=== PATIENT | male | born 1940 | race Caucasian/White ===

== ENCOUNTER 2018-04-01 11:39 | Day surgery (SDC) | payer OTHER ==
[2018-04-01] MEDS ORDERED: TETRACAINE HCL 0.5% 2ML OPTH ONE (12:24)
[2018-04-01] MEDS ORDERED: CYCLOPENTOLATE 1% OPTH 2 ML ONE (12:24)
[2018-04-01] MEDS ORDERED: PHENYLEPHRINE 10% OPTH 5ML ONE (12:24)
[2018-04-01] MEDS ORDERED: NA CHLORIDE 0.9% 500 ML ONE (12:24)
[2018-04-01 12:26] LABS: Protime INR 1.16
[2018-04-01] MEDS ORDERED: CYCLOPENTOLATE 1% OPTH 2 ML OPTH ONE ×2 (12:29→12:42)
[2018-04-01] MEDS ORDERED: PHENYLEPHRINE 10% OPTH 5ML OPTH ONE ×2 (12:29→12:42)
[2018-04-01] MEDS ORDERED: DUOVISC 1 KIT OPTH ONE (12:45)
[2018-04-01] MEDS ORDERED: NS 0.9% VIAL 10 ML ONE (12:45)
[2018-04-01] MEDS ORDERED: MOXIFLOXACIN HCL 10 DROPS/ML **OR USE OPTH ONE (12:45)
[2018-04-01] MEDS ORDERED: BALANCED SALT IRRIG PLAIN 500 ML BTL IRR ONE (12:45)
[2018-04-01] MEDS ORDERED: EPINEPHRINE/PF 1 MG/ML AMP ONE (12:45)
[2018-04-01] MEDS: BUPIVACAINE 0.25% PF 10 ML VIAL ONE ×2 (13:18→13:28)
[2018-04-01] MEDS: LIDOCAINE 2% MPF 5 ML VIAL ONE ×2 (13:18→13:28)
[2018-04-01] MEDS ORDERED: LIDOCAINE 1% MPF 2 ML AMPULE ONE (13:28)
[2018-04-01] MEDS ORDERED: PROPOFOL 200 MG/20 ML VIAL IV ONE ×2 (13:28→13:36)
[2018-04-01] MEDS ORDERED: LIDOCAINE 1% MPF 5 ML VIAL ONE (13:36)
--- NOTE | 2018-04-01 14:11 | P.BOP ---
Preoperative diagnosis: Nuclear sclerotic cataract OS Postoperative diagnosis: Same Primary procedure: Phacoemulsification with IOL OS Estimated blood loss: None Anesthesia: Local (Subtenon's infusion with anesthesia for cataract surgery) Complications: None Implants: SA60WF +20.5 Transferred to: Other (Day surgery) Condition: Good
[2018-04-01 15:05] VITALS: BP 140/67; TEMP 97.8; O2SAT 97
--- NOTE | 2018-04-02 00:43 | OP ---
Date of Procedure: 04/01/2018 Surgeon: Leena Duncan MD Anesthesiologist: Dakota Crenshaw CRNA and Mike Choe MD. Preoperative Diagnosis: Nuclear sclerotic cataract, left eye. Operation Performed: Phacoemulsification with intraocular lens implant, left eye. Anesthesia: Per cataract surgery. Complications: None. Description Of Procedure: In day surgery, the patient was prepped with Betadine and draped. A conju nctival incision was made in the inferior nasal quadrant with Alanis scissors. A sub-Tenon block c onsisting of a 1:1 mixture of 2% Xylocaine and 0.25% bupivacaine was placed through the conjunctival incision with a blunt cannula. A Honan balloon was placed over the eye and the patient was transferr ed to the operating room. In the operating room the patient was prepped and draped in the usual sterile fashion for ophthalmic surgery. A lid speculum was placed in the left eye. Two paracentesis sites were made superiorly and inferiorly in the limbal cornea. Viscoat was placed in the anterior chamber and a crescent blade wa s used to make a corneal groove and tunnel, and a keratome was used to enter the anterior chamber. P rovisc was placed in the anterior chamber and a 360 degree capsulotomy was performed with a cystitome . The lens was hydrodissected with BSS and rotated freely. The lens was removed with a stop and cho p technique. 21.95 Phaco CDE was used to remove the lens. Residual cortex was removed with the irri gation and aspiration. Provisc was placed in the capsular bag. A SA60WF +20.5 lens was placed in th e capsular bag without complications. Irrigation and aspiration were used to remove residual viscoel astic. The paracentesis sites were hydrated with BSS. The wound and paracentesis sites were inspect ed and found to be watertight. Vigamox 0.07 cc was placed intracamerally at the end of the procedure . The eye was irrigated with balanced salt solution. The eye was patched with a soft cotton patch a nd Locke metal shield. The patient was returned to day surgery in good condition. Comments: Extra Viscoat was used. Trace residual PSC remained at the end of surgery. Discharge Instructions: Mr. Tirado is discharged to home in good condition and is to follow up with D r. Leidlein in the morning. SHEREE/JOSE Voice ID: [id number] Report ID: [id number]
== END 2018-04-01 14:40 | disposition home or self-care (01) ==
LOC: OR 11:39
PROVIDERS: ATTEND Ophthalmology Retina Specialist
PROC: 08RK3JZ Replacement of Left Lens with Synthetic Substitute, Percutaneous Approach (ICD-10-PCS; principal; 2018-04-01 11:30)
DX: H25.12 Age-related nuclear cataract, left eye (principal); I10 Essential (primary) hypertension; E78.00 Pure hypercholesterolemia, unspecified; I48.91 Unspecified atrial fibrillation; Z79.01 Long term (current) use of anticoagulants; Z72.0 Tobacco use
CPT/HCPCS: 36415; 66984; 85610; J0171; J2001; J2704

== ENCOUNTER 2018-05-13 07:12 | Day surgery (SDC) | payer OTHER ==
[2018-05-13] MEDS ORDERED: NS 0.9% VIAL 10 ML ONE (08:25)
[2018-05-13] MEDS: CYCLOPENTOLATE 1% OPTH 2 ML ONE ×3 (08:26→08:43)
[2018-05-13] MEDS: PHENYLEPHRINE 10% OPTH 5ML ONE ×3 (08:26→08:43)
[2018-05-13] MEDS ORDERED: NA CHLORIDE 0.9% 500 ML ONE (08:29)
[2018-05-13] MEDS: DUOVISC 1 KIT OPTH ONE ×2 (08:29→09:02)
[2018-05-13] MEDS ORDERED: LIDOCAINE 2% MPF 5 ML VIAL ONE ×2 (08:29→08:54)
[2018-05-13] MEDS ORDERED: TETRACAINE HCL 0.5% 2ML OPTH ONE (08:29)
[2018-05-13] MEDS ORDERED: PROPOFOL 200 MG/20 ML VIAL IV ONE (08:54)
[2018-05-13] MEDS: MOXIFLOXACIN HCL 10 DROPS/ML **OR USE OPTH ONE ×3 (09:01→09:48)
[2018-05-13] MEDS: BALANCED SALT IRRIG PLAIN 500 ML BTL IRR ONE ×2 (09:01→09:29)
[2018-05-13] MEDS: EPINEPHRINE/PF 1 MG/ML AMP ONE ×2 (09:01→09:29)
[2018-05-13] MEDS: BUPIVACAINE 0.25% PF 10 ML VIAL ONE ×2 (09:17→09:35)
--- NOTE | 2018-05-13 09:55 | P.BOP ---
Preoperative diagnosis: Nuclear sclerotic cataract OD Postoperative diagnosis: Same Primary procedure: Phacoemulsification with IOL OD Estimated blood loss: None Anesthesia: Local (Subtenon's infusion with anesthesia for cataract surgery) Complications: None Implants: SA60WF +20.0 Transferred to: Other (Day surgery) Condition: Good
[2018-05-13 10:12] VITALS: BP 111/62; TEMP 97.4; O2SAT 100
--- NOTE | 2018-05-13 20:18 | OP ---
Date of Procedure: 05/13/2018 Surgeon: Leena Duncan MD Anesthesiologist: Meredith Lyle CRNA and Tony Patterson M.D. Preoperative Diagnosis: Nuclear sclerotic cataract, OD (right eye). Operation Performed: Phacoemulsification with intraocular lens implant, OD (right eye). Anesthesia: Per cataract surgery. Complications: None Description Of Procedure: In day surgery, the patient was prepped with Betadine and draped. A conju nctival incision was made in the inferior nasal quadrant with Alanis scissors. A sub-Tenon block c onsisting of a 1:1 mixture of 2% Xylocaine and 0.25% bupivacaine was placed through the conjunctival incision with a blunt cannula. A Honan balloon was placed over the eye and the patient was transferr ed to the operating room. In the operating room the patient was prepped and draped in the usual sterile fashion for ophthalmic surgery. A lid speculum was placed in the right eye. Two paracentesis sites were made superiorly an d inferiorly in the limbal cornea. Viscoat was placed in the anterior chamber and a crescent blade w as used to make a corneal groove and tunnel, and a keratome was used to enter the anterior chamber. Provisc was placed in the anterior chamber and a 360 degree capsulotomy was performed with a cystitom e. The lens was hydrodissected with BSS and rotated freely. The lens was removed with a stop and ch op technique. 13.89 phaco CDE was used to remove the lens. Residual cortex was removed with the irr igation and aspiration. Provisc was placed in the capsular bag. A SA60WF +20.0 lens was placed in t he capsular bag without complications. Irrigation and aspiration was used to remove residual viscoel astic. The paracentesis sites were hydrated with BSS. The wound and paracentesis sites were inspect ed and found to be watertight. Vigamox 0.07 cc was placed intracamerally at the end of the procedure . The eye was irrigated with balanced salt solution. The eye was patched with a soft cotton patch a nd Locke metal shield. The patient was returned to day surgery in good condition. Comments: The patient coughed during surgery but there is no apparent complication. Extra Viscoat wa s used. Discharge Instructions: Mr. Tirado was discharged to home in good condition and is to follow up with Dr. Duncan in the morning. SHEREE/JOSE Voice ID: [id number] Report ID: [id number]
== END 2018-05-13 10:26 | disposition home or self-care (01) ==
LOC: OR 07:12
PROVIDERS: ATTEND Ophthalmology Retina Specialist
PROC: 08RJ3JZ Replacement of Right Lens with Synthetic Substitute, Percutaneous Approach (ICD-10-PCS; principal; 2018-05-13 09:50)
DX: H25.11 Age-related nuclear cataract, right eye (principal); I10 Essential (primary) hypertension; E78.00 Pure hypercholesterolemia, unspecified; I48.91 Unspecified atrial fibrillation; Z72.0 Tobacco use
CPT/HCPCS: 66984; J2704; J0171

== ENCOUNTER 2021-07-08 07:35 | Emergency (ER) | payer OTHER ==
--- OUTSIDE RECORDS SUMMARY | 2021-07-08 07:37 | XMS REPORT | Continuity of Care Document ---
:1940 Author Organization [facility] t Address [address] [place] [address] Care Team Providers Name Role Phone None Primary Care Physician Unavailable RORYAPUNT Attending Clinician Unavailable FAITH TOM Attending Clinician Unavailable 2, Lab Attending Clinician Unavailable Attar MD Attending Clinician ATTAR Attending Clinician Unavailable Doctor Unassigned, Name Attending Clinician Unavailable Payers Payer Name Policy Type Policy Number Effective Date Expiration Date S ourgonzalo MEDICARE PART A [id number] 2007 AND B 00:00:00 MEDICARE PART A [id number] 2007 \T\ B 00:00:00 [employer] INDEMNITY [id number] 00:00:00 Problems This patient has no known problems. Allergies, Adverse Reactions, Alerts Allergy Allergy Status Severity Reaction(s) Onset Inactive Treating Comm ents Source Name Type Date Date Clinician NO KNOWN Drug Active [facility] Class [facility] Social History Social Habit Start Date Stop Date Quantity Comments Source Exposure to Not sure [facility] SARS-CoV-2 (event) [facility] Sex Assigned At [birth year] [facility] 00:00:00 00:00:00 Smoking Status Start Date Stop Date Source Tobacco smoking consumption unknown [facility] Medications Ordered Filled Start Stop Current Ordering Indication Dosage Frequency Signature Comments Components Source Medication Medication Date Date Medication? Clinician (SIG) Name Name metoprolol 2020-02 Yes 100mg QD Take 100 UT tartrate 1-26 mg [facility] (Lopressor) 00:00: mouth 1 100 MG 00 (one) time tablet each day. amLODIPine 2020-02 Yes 5mg QD Take 5 mg UT (Norvasc) 5 1-26 by mouth 1 He alth MG tablet 00:00: (one) time 00 each day. losartan 2020-02 Yes 100mg QD Take 100 UT (Cozaar) 1-26 mg [facility] 100 MG 00:00: mouth 1 tablet 00 (one) time each day. Xarelto 20 2020-02 Yes 20mg QD Take 20 mg U T MG tablet -26 by mouth 1 Heal th 00:00: (one) time 00 each day. with food simvastatin 2020-02 Yes 40mg QD Take 40 mg UT (Zocor) 40 - by mouth 1 Hea lth MG tablet 00:00: (one) time 00 each day. Procedures Procedure Date / Time Performing Clinician Source Performed AGREEMENTS AUTHORIZATIONS 2019-08-28 05:01:00 Doctor Unassigned, [facility] AND IRREVOCABLE [facility] ASSIGNMENTS (FORM 2000) Encounters Start End Encounter Admission Attending Care Care Encounter Source Date/Time Date/Time Type Type Clinicians Facility Department ID 2021-04-22 [id number] 2021-04-22 Office Formerly [facility] 4 [id number] MD 14:45:00 15:11:20 Visit James [id number] He alth [id number] 2020-03-29 2020-03-29 [facility] [id number]-20 Univers 13:30:00 13:30:00 CARMELA [id number] [facility] 2020-03-29 2020-03-29 [facility] [id number] Univers 13:30:00 13:30:00 CARMELA [facility] 2019-08-28 2019-08-28 Head Machine Feeder 2, [facility] [id number] 11:15:07 11:30:07 Visit Edis [id number] Prema [id number] Professangel [id number] [address] 2019-08-28 2019-08-28 Head Machine Feeder 2, [facility] [id number] Univers 11:15:07 11:30:07 Visit AttarJennifer [id number] [facility] [id number] [id number] Ne dical [address] 2019-08-28 2019-08-28 Outpatient R ATTJOVITA, [facility] [id number] Univers 11:00:00 11:00:00 JENNIFER sherman f [facility] 2019-08-28 2019-08-28 Orders Doctor HORTENCIA [id number] 00:00:00 00:00:00 Only Unassigned, MARY [id number] [place] [facility] [id number] 2019-08-28 2019-08-28 Orders Doctor HORTENCIA [id number] [facility] 00:00:00 00:00:00 Only Unassigned, MARY [id number] ity of [place] [facility] [id number] Abdulaziz as [phone] [place] [address] Branch Results This patient has no known results.
[2021-07-08] MEDS ORDERED: ONDANSETRON 4 MG/2 ML VIAL ONE (08:13)
[2021-07-08] MEDS ORDERED: FENTANYL CITR 100 MCG/2 ML ONE (08:13)
[2021-07-08] MEDS ORDERED: TETANUS & DIPHTHERIA TOX,ADULT 0.5 ML VIAL ONE (08:14)
[2021-07-08] MEDS ORDERED: NA CHLORIDE 0.9% 1,000 ML ONE (08:14)
[2021-07-08 08:44] LABS: Absolute Lymphocytes (CBC) 0.6 K/uL (0.7-4.9); Lymphocytes % 4.6 % (15.3-44.8); MPV 8.2 fL (7.6-11.3); RBC Red Blood Cell Count 3.88 M/uL (4.33-5.43)
[2021-07-08] MEDS ORDERED: METOPROLOL TARTRATE 5 MG/5 ML INJ IV ONE ×2 (08:45→09:43)
--- NOTE | 2021-07-08 09:38 | RAD REPORT ---
EXAM DESCRIPTION: CT - Head C Spine Cap Wo Con - 07/08/2021 8:58 am CLINICAL HISTORY: FALL, head, neck, chest and abdomen pain COMPARISON: No comparisons TECHNIQUE: Axial [address] head images were obtained. Axial [address] cervical spine images were obtain ed with sagittal and coronal reconstruction images reviewed. Axial 5 mm images of the chest, abdomen and pelvis were obtained. All CT scans are performed using dose optimization technique as appropriate and may include automated exposure control or mA/KV adjustment according to patient size. FINDINGS: No intracranial hemorrhage, mass or edema. No midline shift or abnormal fluid collection. Moderate atrophy and chronic ischemic changes are present with ventricles in proportion to the volume loss. Dense arterial tree calcifications are present. Mastoid air cells are clear. Chronic right max illary sinusitis present. No skull fracture. Cervical bodies are normal in height. No subluxation abnormality. There is straightening and slight r eversal of the usual cervical lordosis. No fracture or acute bone finding.All disc spaces except C2-3 show loss in height. Anterior and posterior endplate spurring seen between C3 and C7. Prominent face t joint degenerative changes are present. No pathologic bone process seen. Canal is borderline stenot ic at C3-4 with mild bilateral foraminal stenosis. Spinal stenosis to 9 mm noted at C4-5 with bilater al foraminal stenosis. Significant bilateral foraminal stenosis and 8 mm spinal stenosis at C5-6. Sig nificant bilateral foraminal stenosis also present C6-7 with 9 mm spinal stenosis.No prevertebral sof t tissue thickening or paraspinal mass.Central canal detail is inherently limited on CT imaging.Dense carotid calcifications are present. Stenosis is likely but cannot be assessed on this study. Signifi cant degenerative change evident each temporomandibular joint. Extensive fibro emphysematous lung changes are present with prominent bulla and bleb formation in the upper lung vega. Numerous calcified pleural plaques are present. No mediastinal or hilar mass or abnormal lymphadenopathy seen. There are small nonspecific mediastinal lymph nodes present. No media stinal hematoma. Dense calcifications are present at the origin of each great vessel. Aortic calcific ations are present in the chest with no displaced calcification. No chest will mass or abnormal axill rufino finding. No displaced rib fractures. CT abdomen and pelvis show no injury to solid abdominal viscera. Small sub centimeter gallstones pres ent without acute finding. No biliary tree dilatation. No bowel injury or significant finding. No mr e air, free fluid or abnormal stranding. No hernia, mass or bulky lymphadenopathy. Urinary bladder i s fully contracted around a Moy catheter. 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 Extensive calcifications are present near the origins of the celiac and SMA vessels. Aorta is dilated to 3.9 cm superior to the bypass. A 40% wedge compression is noted in the T7 body. Approximately 30% compression fractures are present in T11 and T12. Posterior wall height is preserved at all 3 of these levels. No acute fracture lines are seen and no paraspinal component. These are probably chronic. No pathologic bone change. Transverse fracture is present the right femoral neck. No pathologic changes identified. Lesser troch anter is intact. Lateral margin of the fracture involves the superior aspect of the greater trochante r. There is superior migration of the femoral shaft superiorly. Femoral head is normally positioned. No AVN. IMPRESSION: Right femoral neck fracture with no pathologic bone change. Atrophy and chronic ischemic changes are present with no acute intracranial finding. There is chronic right maxillary sinusitis. No acute cervical spine finding. Multilevel spinal stenosis and foraminal stenosis present as detaile d. Extensive chronic pleural and parenchymal lung disease with no acute chest finding. No acute traumatic injury in the abdomen and pelvis. 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 Vessels are not fully assessed on a noncontrast study. Partial compression fractures of T7, T11 and T12. These are probably chronic with no acute fracture l shanthi identifiable.
--- NOTE | 2021-07-08 09:40 | RAD REPORT ---
EXAM DESCRIPTION: RAD - Pelvis - 07/08/2021 9:27 am CLINICAL HISTORY: right hip pain COMPARISON: Hip Right 2 View dated 07/08/2021 TECHNIQUE: AP imaging of the pelvis was obtained. FINDINGS: Significant degenerative disc disease present at L4-5 and L5-S1. Sacral ala are intact. SI joint degenerative changes are present. No fracture of the bony pelvis identifiable. Left femoral he ad and neck are intact. Right femoral neck fracture is present detailed on separate right hip report. IMPRESSION: No fracture of the pelvis. Right hip fracture is detailed on separate report.
--- NOTE | 2021-07-08 09:40 | RAD REPORT ---
EXAM DESCRIPTION: RAD - Hip Right 2 View - 07/08/2021 9:27 am CLINICAL HISTORY: PAINright hip, fall COMPARISON: Pelvis dated 07/08/2021 FINDINGS: AP and cross-table lateral views of the right hip were obtained. Transverse fracture is present through the femoral neck involving the superior aspect of the greater trochanter. Lesser trochanter is intact. No pathologic bone changes are present. There is superior mi gration of the shaft with narrowing of the femoral neck shaft angle. No AVN of the femoral head. No d islocation of the femoral head. Right hemipelvis is intact. IMPRESSION: Right femoral neck fracture as detailed. No pathologic component seen.
--- NOTE | 2021-07-08 09:42 | RAD REPORT ---
EXAM DESCRIPTION: RAD - Hand Right 3 View - 07/08/2021 9:27 am CLINICAL HISTORY: PAINafter fall COMPARISON: No comparisons FINDINGS: No fracture is identified. IP joint space narrowing present without significant spurring o r erosive component. There is no dislocation or periosteal reaction noted. Very advanced degenerative change present at the trapezium first metacarpal articulation. No foreign body or significant soft t issue abnormality. IMPRESSION: Degenerative changes are present without acute fracture confirmed. Repeat imaging in 7 days recommended if the patient has continued findings concerning for fracture.
[2021-07-08 10:12] LABS: Potassium 3.8 mmol/L (3.5-5.1)
--- NOTE | 2021-07-08 10:39 | ER ---
Nurse's Notes [facility] Name: Edd Tirado Age: 80 yrs Sex: Male : 1940 Arrival Date: 07/08/2021 Time: 07:42 Bed 7 Private MD: Diagnosis: Right Hip Fracture - neck fracture Presentation: 07/08 07:31 Chief complaint: EMS states: Pt fell last night at approximately 12am and was found by vg1 at 6 am on the concrete; pt denies hitting head or LOC, is currently taking xarelto ; c/o Right Hip pain; Pt was given 4 mg of Zofran IVP x1 and 35 mg of Fentanyl IVP x1. 07:31 Coronavirus screen: Vaccine status: Patient reports receiving the 2nd dose of the covid vg1 vaccine. Client denies travel out of the [place] in the last 14 days. Ebola Screen: Patient denies exposure to infectious person. Patient denies travel to an Ebola-affected area in the 21 days before illness onset. Initial Sepsis Screen: Does the patient meet any 2 criteria? RR > 20 per min. HR > 90 bpm. Yes Does the patient have a suspected source of infection? No. Patient's initial sepsis screen is negative. Risk Assessment: Do you want to hurt yourself or someone else? Patient reports no desire to harm self or others. Onset of symptoms was July 08, 2021 at 00:00. Care prior to arrival: pelvic binder Placed on backboard. IV initiated. 20 GA, in the right antecubital area. 07:31 Method Of Arrival: [facility]: [facility] 07:31 Acuity: BART 3 [facility] 08:01 Mechanism of Injury: Fall from standing position. Trauma event details: Injury occurred vg1 in the [facility]. Triage Assessment: 07:31 General: Appears uncomfortable, Behavior is cooperative. Pain: Complains of pain in vg1 right leg and right hip Pain currently is 4 out of 10 on a pain scale. Pain began approximately 12 am today Noted to be grimacing, moaning. EENT: No signs and/or symptoms were reported regarding the EENT system. Neuro: Gordon Agitation-Sedation Scale (RASS): 0 - Alert and Calm Level of Consciousness is awake, alert, obeys commands, Oriented to person, place, time, situation. Cardiovascular: Capillary refill < 3 seconds in bilateral toes Patient's skin is warm and dry. Pulses are palpable in right dorsalis pedis artery and left dorsalis pedis artery. Respiratory: Airway is patent Respiratory effort is even, labored, Respiratory pattern is tachypnea. GI: No signs and/or symptoms were reported involving the gastrointestinal system. : No signs and/or symptoms were reported regarding the genitourinary system. Derm: Skin is intact, Skin is pink, warm \T\ dry. Musculoskeletal: Circulation, motion, and sensation intact. Trauma Activation: Physician: ED Physician; Name: Dr Quiros; Notified At: ; Arrived At: Physician: General Surgeon; Name: ; Notified At: ; Arrived At: Physician: Radiology; Name: ; Notified At: ; Arrived At: Physician: Respiratory; Name: ; Notified At: ; Arrived At: Physician: Lab; Name: ; Notified At: ; Arrived At: Historical: - Allergies: 07:53 No Known Allergies; vg1 - Home Meds: 07:53 losartan oral [Active]; Metoprolol Tartrate Oral [Active]; Xarelto oral [Active]; vg1 08:04 Simvastatin Oral [Active]; vg1 - PMHx: 07:53 Hypertensive disorder; vg1 - PSHx: 07:53 Stented artery; vg1 - Immunization history:: Client reports receiving the 2nd dose of the Covid vaccine. - Social history:: Smoking status: Patient reports the use of cigarette tobacco products, smokes one pack cigarettes per day. - Immunization history: Last tetanus immunization: unknown. Screenin:31 Abuse screen: Denies threats or abuse. Nutritional screening: No deficits noted. vg1 Tuberculosis screening: No symptoms or risk factors identified. 08:02 Fall Risk Fall in past 12 months (25 points). No secondary diagnosis (0 pts). IV access vg1 (20 points). Ambulatory Aid- None/Bed Rest/Nurse Assist (0 pts). Gait- Impaired (20 pts.). Mental Status- Oriented to own ability (0 pts). Total Cruz Fall Scale indicates High Risk Score (45 or more points). Fall prevention measures have been instituted. Side Rails Up X 2 Placed Close to Nursing Station Family Present and informed to notify staff if the need to leave the bedside As available patient and family educated on Fall Prevention Program and Strategies. Primary Survey: 07:31 NO uncontrolled hemorrhage observed. A: The client is awake and alert. The airway is vg1 patent. Breathing/Chest: Spontaneous respiratory effort, equal unlabored respirations, breath sounds clear bilaterally, regular pattern, symmetrical chest rise and fall. Respiratory effort: spontaneous, Breath sounds: clear, bilaterally. Respiratory pattern: regular, tachypnea, Chest inspection: symmetrical rise and fall of the chest. Circulation: No external hemorrhage present. Regular and strong central pulse, skin warm/dry/normal color. Pulses: palpable right dorsalis pedis artery and left dorsalis pedis artery. Skin color: pink. Disability Client is alert. Exposure/Environment: A warming method has been applied: A warm blanket has been provided to the patient. 07:58 Reassessment Alertness and Airway: Awake and alert. The airway is patent. Oxygen Nasal vg1 cannula Breathing: Spontaneous respiratory effort, equal unlabored respirations, breath sounds clear bilaterally, regular pattern with symmetrical chest rise and fall. Respiratory effort Spontaneous Breath sounds Clear Respiratory pattern Regular Tachypnea Chest inspection Symmetrical Circulation: No external hemorrhage noted. Regular and strong central pulse, skin warm/dry/normal color. Pulses Palpable Disability: Alert. Secondary Survey: 07:31 HEENT: No deficits noted. Gastrointestinal: Abdomen is soft. : No deficits noted. vg1 Musculoskeletal: Circulation, motion, and sensation intact. Tenderness present in right hip Pelvis tender with pelvic rock, Reports Right hip pain. Assessment: 07:57 Reassessment: SEE TRIAGE. vg1 08:35 Reassessment: Patient appears in no apparent distress at this time. No changes from vg1 previously documented assessment. Patient and/or family updated on plan of care and expected duration. Pain level reassessed. Patient is alert, oriented x 3, equal unlabored respirations, skin warm/dry/pink. 08:35 Reassessment: Received VO from Dr Quiros to administer Lopressor 5 mg IVP x1. vg1 08:48 Reassessment: Pt transported to CT via stretcher. vg1 10:00 Reassessment: Patient appears in no apparent distress at this time. No changes from jl7 previously documented assessment. Patient and/or family updated on plan of care and expected duration. Pain level reassessed. Patient is alert, oriented x 3, equal unlabored respirations, skin warm/dry/pink. 11:00 Reassessment: Patient appears in no apparent distress at this time. No changes from jl7 previously documented assessment. Patient and/or family updated on plan of care and expected duration. Pain level reassessed. Patient is alert, oriented x 3, equal unlabored respirations, skin warm/dry/pink. 11:00 Reassessment: [facility] at bedside to transport pt. 7 Vital Signs: 07:31 BP 151 / 99; Pulse 123; Resp 28; Temp 97.9(TE); Pulse Ox 93% on 2 lpm NC; Weight 88.45 vg1 kg; Height 5 ft. 8 in. (172.72 cm); Pain 4/10; 08:00 BP 158 / 87; Pulse 131; Resp 27; Pulse Ox 94% on 2 lpm NC; vg1 08:30 BP 192 / 85; Pulse 127; Resp 27; Pulse Ox 90% on 2 lpm NC; vg1 08:49 BP 160 / 96; Pulse 120; Resp 26; Pulse Ox 93% on 2 lpm NC; vg1 09:30 BP 170 / 104; Pulse 116; Resp 16; Pulse Ox 96% ; jl7 10:00 BP 152 / 87; Pulse 109; Resp 16; Pulse Ox 97% ; jl7 07:31 Body Mass Index 29.65 (88.45 kg, 172.72 cm) vg1 [place] Coma Score: 07:31 Eye Response: spontaneous(4). Verbal Response: oriented(5). Motor Response: obeys vg1 commands(6). Total: 15. 09:30 Eye Response: spontaneous(4). Verbal Response: oriented(5). Motor Response: obeys jl7 commands(6). Total: 15. 10:00 Eye Response: spontaneous(4). Verbal Response: oriented(5). Motor Response: obeys jl7 commands(6). Total: 15. Trauma Score (Adult): 07:31 Eye Response: spontaneous(1); Verbal Response: oriented(1); Motor Response: obeys vg1 commands(2); Systolic BP: > 89 mm Hg(4); Respiratory Rate: 10 to 29 per min(4); [place] Score: 15; Trauma Score: 12 ED Course: 07:31 Arm band placed on. vg1 07:31 Patient has correct armband on for positive identification. Call light in reach. Side vg1 rails up X2. Adult w/ patient. Oxygen administration via nasal cannula \T\ 2L/min. 07:31 Oxygen administration via nasal cannula \T\ 2L/min. vg1 07:40 EKG done, by ED staff. tp1 07:42 Patient arrived in ED. eb 07:43 Nakul Quiros MD is Attending Physician. kdr 07:46 Letty Solorzano, RN is Primary Nurse. vg1 07:53 Triage completed. vg1 08:00 Client placed on continuous cardiac and pulse oximetry monitoring. NIBP monitoring jl7 applied. 08:00 Warm blanket given. jl7 08:01 Thermoregulation: warm blanket given to patient. vg1 08:12 Inserted saline lock: 20 gauge in left forearm, using aseptic technique. Blood tp1 collected. 08:32 Moy cath inserted, using sterile technique, 16 Fr., by sd, balloon inflated, to tp1 gravity drainage. 09:00 Head C Spine Cap Wo Con In Process Unspecified. EDMS 09:29 Pelvis XRAY In Process Unspecified. EDMS 09:29 Hip Right 2 View XRAY In Process Unspecified. EDMS 09:29 Hand Right 3 View XRAY In Process Unspecified. EDMS 09:49 initiated a transfer with Sandee Simon from the [facility]. eb 10:28 connected the orthopedic system controller for [facility] with for patient eb transfer consultation. 10:30 connected the hospitalist system controller for [facility] with Dr. Quiros for patient eb transfer consultation. 10:35 administrative approval given by Sandee Simon/ patient has been accepted to [facility]530/ Dr. Jahaira Trinidad has accepted the patient in transfer/ report to be called to [phone]. 10:53 No provider procedures requiring assistance completed. Patient transferred, IV remains jl7 in place. intact, No redness/swelling at site. 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 Exp: vg1 05/07/2023. Lot #: [id number]. } Route: IM; Site: right deltoid; 09:26 Follow up: Response: No adverse reaction jl7 09:45 Drug: Lopressor (metoprolol) 5 mg Route: IVP; Site: left forearm; jl7 11:39 Follow up: Response: Blood pressure is lowered jl7 09:47 Drug: NS 0.9% 500 ml Route: IV; Rate: 75 ml/hr; Site: left forearm; jl7 11:39 Follow up: IV Status: Infusion continued upon transfer jl7 Medication: 10:00 Vaccine Information Statement (VIS) provided today. Questions and/or concerns jl7 addressed. VIS edition date: July 08, 2021. Intake: 09:48 IV: 500ml; Total: 500ml. jl7 11:37 PO: 0ml; IV: 600ml; Total: 1100ml. jl7 Output: 11:37 Urine: 600ml (Moy); Total: 600ml. jl7 Outcome: 10:38 ER care complete, transfer ordered by . kdr 11:36 Transferred by ground EMS to [facility], Transfer form completed. jl7 X-rays sent w/ patient. 11:36 Condition: stable 11:36 Discharge instructions given to patient, family, Instructed on the need for transfer, Demonstrated understanding of instructions. 11:38 Patient's length of stay was not longer than 2 hours. jl7 11:38 Patient left the ED. jl7 Signatures: Dispatcher [employer] EDMS Nakul Quiros MD MD kdr Leal, Jahala RN RN jl7 Sandee Zee Victoria RN RN vg1 Laurie Wang tp1 Corrections: (The following items were deleted from the chart) 07:59 07:31 Breathing/Chest: Spontaneous respiratory effort, equal unlabored respirations, vg1 breath sounds clear bilaterally, regular pattern, symmetrical chest rise and fall. 1 07:31 Circulation: No external hemorrhage present. Regular and strong central pulse, vg1 skin warm/dry/normal color. Pulses: palpable right dorsalis pedis artery and left dorsalis pedis artery. Skin color: pink, 1 07:31 Disability Client is alert. 1 1 09:48 09:47 NS 0.9% 500 ml IV at 75 ml/hr in right forearm jl7 jl7
--- NOTE | 2021-07-08 10:39 | EDPHYS ---
Physician Documentation [facility] Name: Edd Tirado Age: 80 yrs Sex: Male : 1940 Arrival Date: 07/08/2021 Time: 07:42 Bed 7 Private MD: ED Physician Nakul Quiros HPI: 07/08 07:57 This 80 yrs old Male presents to ER via EMS with complaints of Fall Injury. kdr 07:57 This 80 yrs old Male presents to ER via EMS with complaints of Fall Injury. kdr 07:59 She reportedly fell around midnight last night laying on the concrete all evening. He kdr managed to find a had to lay on. His was in the house but had gone to bed and did not wake till this morning when she found him. Patient denies hitting his head or any loss of consciousness. He primary complains of right hip pain and right hand abrasions. Patient is alert and oriented. Is admitted to drinking 3 beers ([place] light) per day. Last p.o. consumption was last evening around 10 when he had popcorn. Onset: The symptoms/episode began/occurred suddenly, last night. Severity of symptoms: At their worst the symptoms were mild moderate just prior to arrival, incapacitating in the emergency department the symptoms are unchanged. The patient has not experienced similar symptoms in the past. The patient has not recently seen a physician. Historical: - Allergies: 07:53 No Known Allergies; vg1 - Home Meds: 07:53 losartan oral [Active]; Metoprolol Tartrate Oral [Active]; Xarelto oral [Active]; vg1 08:04 Simvastatin Oral [Active]; vg1 - PMHx: 07:53 Hypertensive disorder; vg1 - PSHx: 07:53 Stented artery; vg1 - Immunization history:: Client reports receiving the 2nd dose of the Covid vaccine. - Social history:: Smoking status: Patient reports the use of cigarette tobacco products, smokes one pack cigarettes per day. - Immunization history: Last tetanus immunization: unknown. ROS: 07:59 Constitutional: Negative for fever, chills, and weight loss, Eyes: Negative for injury, kdr pain, redness, and discharge, ENT: Negative for injury, pain, and discharge, Neck: Negative for injury, pain, and swelling, Cardiovascular: Negative for chest pain, palpitations, and edema, Respiratory: Negative for shortness of breath, cough, wheezing, and pleuritic chest pain, Abdomen/GI: Negative for abdominal pain, nausea, vomiting, diarrhea, and constipation, Back: Negative for injury and pain, : Negative for injury, bleeding, discharge, and swelling, Skin: Negative for injury, rash, and discoloration, Neuro: Negative for headache, weakness, numbness, tingling, and seizure activity. Psych: Negative for depression, anxiety, suicide ideation, homicidal ideation, and hallucinations, Allergy/Immunology: Negative for hives, rash, and allergies, Endocrine: Negative for neck swelling, polydipsia, polyuria, polyphagia, and marked weight changes, Hematologic/Lymphatic: Negative for swollen nodes, abnormal bleeding, and unusual bruising. 07:59 MS/extremity: Positive for injury or acute deformity, decreased range of motion, pain, tenderness, of the right femoral area, right inguinal area, right iliac crest and right hip. Exam: 07:55 ECG was reviewed by the Attending Physician. kdr 07:59 Constitutional: This is a well developed, well nourished patient who is awake, alert, kdr and in no acute distress. Head/Face: Normocephalic, atraumatic. Eyes: Pupils equal round and reactive to light, extra-ocular motions intact. Lids and lashes normal. Conjunctiva and sclera are non-icteric and not injected. Cornea within normal limits. Periorbital areas with no swelling, redness, or edema. Neck: Trachea midline, no thyromegaly or masses palpated, and no cervical lymphadenopathy. Supple, full range of motion without nuchal rigidity, or vertebral point tenderness. No Meningismus. Chest/axilla: Normal chest wall appearance and motion. Nontender with no deformity. No lesions are appreciated. Cardiovascular: Regular rate and rhythm with a normal S1 and S2. No gallops, murmurs, or rubs. Normal PMI, no JVD. No pulse deficits. Respiratory: Lungs have equal breath sounds bilaterally, clear to auscultation and percussion. No rales, rhonchi or wheezes noted. No increased work of breathing, no retractions or nasal flaring. Abdomen/GI: Soft, non-tender, with normal bowel sounds. No distension or tympany. No guarding or rebound. No evidence of tenderness throughout. Back: No spinal tenderness. No costovertebral tenderness. Full range of motion. Skin: Warm, dry with normal turgor. Normal color with no rashes, no lesions, and no evidence of cellulitis. Neuro: Awake and alert, GCS 15, oriented to person, place, time, and situation. Cranial nerves II-XII grossly intact. Motor strength 5/5 in all extremities. Sensory grossly intact. Cerebellar exam normal. Normal gait. Psych: Awake, alert, with orientation to person, place and time. Behavior, mood, and affect are within normal limits. 07:59 Musculoskeletal/extremity: Extremities: grossly normal except: noted in the right hip: decreased ROM, deformity, pain, tenderness, Peers to have shortening of the right lower extremity. He has equal sensation on both sides. He moves both feet normally. Pulses are diminished bilaterally. Patient is a long-term smoker and likely has peripheral vascular disease.. Vital Signs: 07:31 BP 151 / 99; Pulse 123; Resp 28; Temp 97.9(TE); Pulse Ox 93% on 2 lpm NC; Weight 88.45 vg1 kg; Height 5 ft. 8 in. (172.72 cm); Pain 4/10; 08:00 BP 158 / 87; Pulse 131; Resp 27; Pulse Ox 94% on 2 lpm NC; vg1 08:30 BP 192 / 85; Pulse 127; Resp 27; Pulse Ox 90% on 2 lpm NC; vg1 08:49 BP 160 / 96; Pulse 120; Resp 26; Pulse Ox 93% on 2 lpm NC; vg1 09:30 BP 170 / 104; Pulse 116; Resp 16; Pulse Ox 96% ; jl7 10:00 BP 152 / 87; Pulse 109; Resp 16; Pulse Ox 97% ; jl7 07:31 Body Mass Index 29.65 (88.45 kg, 172.72 cm) vg1 [place] Coma Score: 07:31 Eye Response: spontaneous(4). Verbal Response: oriented(5). Motor Response: obeys vg1 commands(6). Total: 15. 09:30 Eye Response: spontaneous(4). Verbal Response: oriented(5). Motor Response: obeys jl7 commands(6). Total: 15. 10:00 Eye Response: spontaneous(4). Verbal Response: oriented(5). Motor Response: obeys jl7 commands(6). Total: 15. Trauma Score (Adult): 07:31 Eye Response: spontaneous(1); Verbal Response: oriented(1); Motor Response: obeys vg1 commands(2); Systolic BP: > 89 mm Hg(4); Respiratory Rate: 10 to 29 per min(4); [place] Score: 15; Trauma Score: 12 MDM: 08:12 Data reviewed: vital signs, nurses notes, lab test result(s), radiologic studies. kdr Counseling: I had a detailed discussion with the patient and/or guardian regarding: the historical points, exam findings, and any diagnostic results supporting the discharge/admit diagnosis, lab results, radiology results, the need to transfer to another facility. ED course: Presently no orthopedic surgery on-call. Therefore patient will be transferred. 10:38 Patient medically screened. kdr 07/08 07:46 Order name: Basic Metabolic Panel; Complete Time: 10:28 kdr 07/08 07:46 Order name: CBC with Diff; Complete Time: 09:45 kdr 07/08 07:46 Order name: Type And Screen; Complete Time: 10:28 kdr 07/08 07:50 Order name: CPK; Complete Time: 10:28 kdr 07/08 07:54 Order name: ETOH Level; Complete Time: 10:28 kdr 07/08 07:56 Order name: Troponin High Sensitivity; Complete Time: 09:45 kdr 07/08 07:49 Order name: Pelvis XRAY; Complete Time: 09:45 kdr 07/08 07:49 Order name: Hip Right 2 View XRAY; Complete Time: 09:45 kdr 07/08 07:58 Order name: Head C Spine Cap Wo Con; Complete Time: 09:45 EDMS 07/08 08:04 Order name: Hand Right 3 View XRAY; Complete Time: 09:45 kdr 07/08 08:19 Order name: SARS-COV-2 RT PCR (Document "Date of Onset" if Symptomatic); Complete Time: eb :28 07/08 09:59 Order name: ABO/RH no charge; Complete Time: 10:28 EDMS 07/08 07:46 Order name: Labs collected and sent; Complete Time: 08:34 kdr 07/08 07:56 Order name: Moy; Complete Time: 08:33 kdr 07/08 08:50 Order name: Labs - recollect needed: chemistry; Complete Time: 09:45 eb EC:55 Rate is 135 beats/min. Rhythm is irregularly irregular, A fib with PACs. Left axis kdr deviation noted. DE interval is normal. QRS interval is normal. QT interval is normal. Clinical impression: Sinus arrythmia. 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 Exp: vg1 05/07/2023. Lot #: [id number]. } Route: IM; Site: right deltoid; 09:26 Follow up: Response: No adverse reaction jl7 09:45 Drug: Lopressor (metoprolol) 5 mg Route: IVP; Site: left forearm; jl7 11:39 Follow up: Response: Blood pressure is lowered jl7 09:47 Drug: NS 0.9% 500 ml Route: IV; Rate: 75 ml/hr; Site: left forearm; jl7 11:39 Follow up: IV Status: Infusion continued upon transfer jl7 Disposition Summary: 07/08/21 10:38 Transfer Ordered Transfer Location: [facility] kdr Reason: Higher level of care kdr Condition: Fair kdr Problem: new kdr Symptoms: have improved kdr Accepting Physician: [facility] (no local ortho)(07/08/21 11:38) jl7 Diagnosis - Right Hip Fracture - neck fracture kdr Forms: - Medication Reconciliation Form kdr - SBAR form kdr Signatures: Dispatcher [employer] Nakul Nova MD MD kdr Radha Menjivar RN RN jl7 Sandee Zee Victoria RN RN vg1 Corrections: (The following items were deleted from the chart) 11:38 10:38 [facility] kdr jl7
[2021-07-08 11:59] VITALS: BP 152/87; O2SAT 97
--- NOTE | 2021-07-11 10:10 | EKG ---
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
== END 2021-07-08 11:38 | disposition short-term general hospital (02) ==
LOC: ER 07:35
DX: S42.211A Unspecified displaced fracture of surgical neck of right humerus, initial encounter for closed fracture (principal); S60.511A Abrasion of right hand, initial encounter; W18.30XA Fall on same level, unspecified, initial encounter; I10 Essential (primary) hypertension; F17.210 Nicotine dependence, cigarettes, uncomplicated; Z20.822 Contact with and (suspected) exposure to COVID-19; Z23 Encounter for immunization
CPT/HCPCS: 96361; 93005; 85025; 80048; 36415; 80320; 86900; 86850; 82550; 86901; 84484; 70450; 71250; 72125; 72170; 73130; 73502; 90471; 90714; 51702; 96375; 96374; 99285; U0003; J3010; J7030; J2405